=== PATIENT | female | born 1975 | race Caucasian/White ===

== ENCOUNTER 2018-07-31 11:47 | Emergency (ER) | payer OTHER ==
[2018-07-31] MEDS ORDERED: Lorazepam 2 MG/ML VIAL ONE (12:21)
--- NOTE | 2018-07-31 12:25 | RAD ---
AP CHEST: Date: 07/31/18 HISTORY: Chest pain. FINDINGS: Lung conte are clear. Heart and mediastinum normal. Vasculature normal. IMPRESSION: Unremarkable chest. POS: [facility]
[2018-07-31 12:41] LABS: #Basophils 0.1 thou/uL (0.0-0.2); #Eosinphils 0.1 thou/uL (0.0-0.7); #Lymphocytes 2.5 thou/uL (1.20-3.40); #Monocytes 0.5 thou/uL (0.11-0.59); #Neutrophils 4.2 thou/uL (1.40-6.50); %Eosinophils 0.8 % (0.0-10.0); %Lymphocytes 34.1 % (21.0-51.0); %Monocytes 6.2 % (0.0-10.0); %Neutrophils 57.9 % (42.0-75.0); Hemoglobin 17.4 g/dL (12.0-16.0); Mean Corpuscular HGB CONC 35.9 g/dL (32.0-36.0); Mean Corpuscular Hemoglobin 33.9 pg (27.0-31.0); Mean Corpuscular Volume 94.5 fL (78.0-98.0); Mean Platelet Volume 6.4 fL (7.4-10.4); Platelet Count 342 thou/uL (130-400); RBC Distribution Width 10.5 % (11.5-14.5); Red Blood Cell (RBC) Count 5.14 mill/uL (4.20-5.40); White Blood Cell (WBC) Count 7.2 thou/uL (4.8-10.8)
[2018-07-31 12:51] LABS: ALT (SGPT) 30 U/L (8-55); AST (SGOT) 18 U/L (5-34); Albumin 4.5 g/dL (3.5-5.0); Alkaline Phosphatase 82 U/L (40-150); Anion Gap 14 mmol/L (10-20); BUN (Urea Nitrogen) 10 mg/dL (7.0-18.7); Bilirubin, Total 0.4 mg/dL (0.2-1.2); Calc. Creatinine Clearance 0 mL/min (70-130); Calcium 9.6 mg/dL (7.8-10.44); Carbon Dioxide 22 mmol/L (22-29); Chloride 107 mmol/L (98-107); Estimated GFR-MDRD Greater than 90; Globulin 2.9 g/dL (2.4-3.5); Glucose 91 mg/dL (70-105); Protein, Total 7.4 g/dL (6.0-8.3); Sodium 139 mmol/L (136-145)
[2018-07-31 12:53] LABS: CKMB 1.8 ng/mL (0-6.6); Troponin I Less than 0.010 ng/mL (< 0.028)
[2018-07-31] MEDS ORDERED: Sodium Chloride 0.9% 1,000 ML BAG ONE (13:59)
== END 2018-07-31 13:33 | disposition home or self-care (01) ==
LOC: MADERS 11:47
DX: F41.9 Anxiety disorder, unspecified (principal); F17.210 Nicotine dependence, cigarettes, uncomplicated
CPT/HCPCS: 71045; 80053; 82553; 84484; 85025; 93005; 94760; 96361; 96374; 99406; J2060; J7050

== ENCOUNTER 2022-06-02 19:01 | Emergency (ER) | payer OTHER, SELFPAY | END 2022-06-02 20:00 | disposition home or self-care (01) | LOC: MADERS 19:01 | DX: Z00.00 Encounter for general adult medical examination without abnormal findings (principal); F17.210 Nicotine dependence, cigarettes, uncomplicated | CPT/HCPCS: 99282 ==

== ENCOUNTER 2022-06-03 17:04 | Emergency (ER) | payer SELFPAY ==
[2022-06-03] MEDS ORDERED: Rabies Vaccine Human 2.5 UNITS VIAL ONE (17:31)
== END 2022-06-03 17:42 | disposition home or self-care (01) ==
LOC: MADERS 17:04
DX: Z20.3 Contact with and (suspected) exposure to rabies (principal); F17.210 Nicotine dependence, cigarettes, uncomplicated; Z23 Encounter for immunization
CPT/HCPCS: 90471; 90675

== ENCOUNTER 2022-06-06 12:49 | Emergency (ER) | payer SELFPAY ==
[2022-06-06] MEDS ORDERED: Rabies Vaccine Human 2.5 UNITS VIAL ONE (15:01)
== END 2022-06-06 15:30 | disposition home or self-care (01) ==
LOC: MADERS 12:49
DX: Z20.3 Contact with and (suspected) exposure to rabies (principal); Z23 Encounter for immunization
CPT/HCPCS: 90376; 90471; 90675

== ENCOUNTER → 2022-06-10 | Day surgery (SDC) | payer SELFPAY ==
[~2022-06-10] MED LIST: Rabies Vaccine Human 2.5 UNITS VIAL ONE
== END | disposition home or self-care (01) ==
LOC: MADERS 14:43
PROVIDERS: ATTEND Emergency Medicine
DX: Z23 Encounter for immunization (principal)
CPT/HCPCS: 90675

== ENCOUNTER → 2022-06-17 | Day surgery (SDC) | payer SELFPAY | END | disposition home or self-care (01) | LOC: MADERS 15:28 | PROVIDERS: ATTEND Emergency Medicine | DX: Z23 Encounter for immunization (principal) | CPT/HCPCS: 90675 ==